=== PATIENT | male | born 1945 | race Two or more races ===

== ENCOUNTER 2021-11-07 06:00 | Day surgery (SDC) | payer OTHER ==
[~2021-11-07 06:00] MED LIST: ADULT LOW DOSE81 M1 PO; ATACAND32 MG PO; LIPITOR20 MG PO; METFORMIN HCL500 M3 PO; NORVASC10 MG PO; PLAVIX75 MG PO; PROSCAR5 MG PO; SINGULAIR10 MG PO; TAMS0.4C PO; ZOLOFT100 MG PO
== END 2021-11-07 18:09 | disposition home or self-care (01) ==
LOC: CIR.AMB 06:00
PROVIDERS: ATTEND Orthopaedic Surgery Hand Surgery
DX: M24.522 Contracture, left elbow (principal); Z20.822 Contact with and (suspected) exposure to COVID-19